=== PATIENT | male | born 1980 | race African-American/Black ===

== ENCOUNTER 2018-01-02 10:36 | Day surgery (SDC) | payer OTHER ==
[2017-12-30 09:19] VITALS: BP 117/77
[2017-12-30 09:41] LABS: POTASSIUM 4.2 mmol/L (3.5-5.1)
[2017-12-30 09:47] LABS: BASOPHILS % (AUTO) 0.4 % (0.0-5.0); EOSINOPHILS % (AUTO) 1.3 % (0.0-8.0); LYMPHOCYTES % (AUTO) 38.3 % (21.0-51.0); MEAN CORPUSCULAR VOLUME 75.7 fL (79-99); MONOCYTES % (AUTO) 6.1 % (3.0-13.0); NEUTROPHILS % (AUTO) 53.9 % (40.0-77.0); PLATELET COUNT (AUTO) 356 K/uL (130-400); RED BLOOD CELL COUNT(AUTO) 5.55 MIL/uL (4.50-6.20); RED CELL DISTRIBUTION WIDTH 15.5 % (11.0-15.5); WHITE BLOOD COUNT (AUTO) 8.4 K/uL (4.8-10.8)
[~2018-01-02] VITALS: Ht 177.8 cm; Wt 114.5 kg
[2018-01-02] VITALS (13 sets, daily range): BP systolic 95–120; BP diastolic 61–85
[2018-01-02] MEDS ORDERED: LACTATED RINGERS 1000ML 1,000 ML IV ONE (11:19)
[2018-01-02] MEDS: CEFAZOLIN SODIUM 1 GM VIAL IVP SCH ×2 (11:20→15:30)
[2018-01-02] MEDS ORDERED: MIDAZOLAM HCL 1 MG/ML 2ML VIAL ONE (14:53)
[2018-01-02] MEDS ORDERED: PROPOFOL 10 MG/ML 20ML VIAL IV ONE (14:53)
[2018-01-02] MEDS ORDERED: FENTANYL CITRATE PF 50 MCG/1 ML 2ML VIAL ONE (14:54)
[2018-01-02] MEDS ORDERED: ROPIVACAINE 0.5% 5MG/ML 30ML IJ ONE (14:55)
[2018-01-02] MEDS ORDERED: EPINEPHRINE 1 MG/ML 30ML VIAL IJ ONE (15:05)
[2018-01-02] MEDS ORDERED: DEXAMETHASONE SOD PHOSPHATE 10MG/ML 1ML VIAL ONE (15:36)
[2018-01-02] MEDS ORDERED: ONDANSETRON HCL 4 MG/2 ML VIAL ONE (15:36)
[2018-01-02] MEDS ORDERED: PHENYLEPHRINE HCL 10 MG/ML 1ML VIAL IV ONE (15:57)
== END 2018-01-02 18:45 | disposition home or self-care (01) ==
LOC: DAH 10:36
PROVIDERS: ATTEND Orthopaedic Surgery
DX: S43.421A Sprain of right rotator cuff capsule, initial encounter (principal); M75.21 Bicipital tendinitis, right shoulder; M75.41 Impingement syndrome of right shoulder; Z79.899 Other long term (current) drug therapy; Z98.890 Other specified postprocedural states
CPT/HCPCS: 29824; 36415; 80048; 85025; A4218; A4565; A4649 ×3; A4930; A6204; G0168; J0171; J0690 ×2; J1100; J2250; J2370; J2405; J2704; J2795; J3010; J7120 ×2